=== PATIENT | female | born 1935 | race Caucasian/White ===

== ENCOUNTER 2021-11-18 19:33 | Inpatient (IN) | payer OTHER ==
[~2021-11-18] VITALS: Ht 172.7 cm; Wt 49.9 kg
[2021-11-18] MEDS ORDERED: CLOPIDOGREL BIS75 MG PO (20:29)
== END 2021-11-27 13:50 | disposition home or self-care (01) | DRG 189 ==
LOC: ER 19:33 → MEDJ 11-19 01:29 → SURH 11-19 01:29
PROVIDERS: ADMIT Internal Medicine; ATTEND Internal Medicine
PROC: 4A12X4Z Monitoring of Cardiac Electrical Activity, External Approach (ICD-10-PCS; principal; 2021-11-19)
PROC: BB24ZZZ Computerized Tomography (CT Scan) of Bilateral Lungs (ICD-10-PCS; 2021-11-19)
PROC: BB24Y0Z Computerized Tomography (CT Scan) of Bilateral Lungs using Other Contrast, Unenhanced and Enhanced (ICD-10-PCS; 2021-11-19)
PROC: 5A09357 Assistance with Respiratory Ventilation, Less than 24 Consecutive Hours, Continuous Positive Airway Pressure (ICD-10-PCS; 2021-11-19)
PROC: B246ZZZ Ultrasonography of Right and Left Heart (ICD-10-PCS; 2021-11-20)
PROC: 02HV33Z Insertion of Infusion Device into Superior Vena Cava, Percutaneous Approach (ICD-10-PCS; 2021-11-22)
DX: J96.21 Acute and chronic respiratory failure with hypoxia (principal); I21.4 Non-ST elevation (NSTEMI) myocardial infarction; I21.A1 Myocardial infarction type 2; E87.2 Acidosis; I50.32 Chronic diastolic (congestive) heart failure; E78.5 Hyperlipidemia, unspecified; G62.9 Polyneuropathy, unspecified; M51.26 Other intervertebral disc displacement, lumbar region; Z86.73 Personal history of transient ischemic attack (TIA), and cerebral infarction without residual deficits; Z20.822 Contact with and (suspected) exposure to COVID-19; Z66 Do not resuscitate
CPT/HCPCS: 71275